=== PATIENT | female | born 1935 | race Two or more races ===

== ENCOUNTER 2022-05-13 22:43 | Inpatient (IN) | payer MEDICAID, MEDICARE ==
[~2022-05-13] VITALS: Ht 152.4 cm; Wt 63.6 kg
[2022-05-13] MEDS ORDERED: normal saline 1000ML IV soln IVB ONE (23:10)
[2022-05-13] MEDS ORDERED: ondansetron/PF 4mg/2ml inj IV ONE (23:10)
--- NOTE | 2022-05-13 23:26 | NUR ---
RELIEVING RN FOR LUNCH, PT IS RESTING QUIETLY ON GURNEY, FAMILY AT BEDSIDE TO INTREPRET SAMANTHA, HEMOCULT NEGATIVE, 1ST LITER NS INFUSING W/O, LABS DRAWN
[2022-05-13 23:35] LABS: BASOPHILS # (AUTO) 0.1 X10'3 (0-0.2); BASOPHILS % (AUTO) 0.8 % (0-1); EOSINOPHILS % (AUTO) 0.5 % (0-6); HEMATOCRIT 36.3 % (35.0-45.0); HEMOGLOBIN 12.9 g/dl (12.0-16.0); LYMPHOCYTES # (AUTO) 1.4 X10'3 (1.1-4.8); LYMPHOCYTES % (AUTO) 21.1 % (21-51); MEAN CORPUSCULAR HEMOGLOBIN 31.7 PG (27.0-31.0); MEAN CORPUSCULAR HGB CONC 35.5 g/dL (33.0-36.5); MEAN CORPUSCULAR VOLUME 89.4 FL (78-98); MEAN PLATELET VOLUME 7.1 FL (7.4-10.4); MONOCYTES # (AUTO) 0.5 X10'3 (0-0.9); MONOCYTES % (AUTO) 8.2 % (2-12); NEUTROPHILS # (AUTO) 4.6 X10'3 (1.8-7.7); NEUTROPHILS % (AUTO) 69.4 % (42-75); PLATELET COUNT 292 X10'3 (140-440); RED BLOOD COUNT 4.06 X10'6 (4.20-5.60); RED CELL DISTRIBUTION WIDTH 13.1 % (11.5-14.5); WHITE BLOOD COUNT 6.6 X10'3 (4.5-11.0)
[2022-05-13 23:46] LABS: ALANINE AMINOTRANSFERASE 47 U/L (12-78); ALBUMIN 3.5 G/DL (3.4-5.0); ALBUMIN/GLOBULIN RATIO 0.9 (1.1-1.5); ALKALINE PHOSPHATASE 81 IU/L (46-116); ANION GAP 7 (8-16); BILIRUBIN,TOTAL 0.8 MG/DL (0.1-1.0); BLOOD UREA NITROGEN 10 MG/DL (7-18); BUN/CREATININE RATIO 15.2 (6.6-38.0); CALCIUM 8.7 MG/DL (8.5-10.1); CHLORIDE 86 MMOL/L (99-107); CREATININE 0.66 MG/DL (0.40-0.90); GLUCOSE 130 MG/DL (70-104); LIPASE 103 U/L (73-393); TOTAL CARBON DIOXIDE 25.6 MMOL/L (24-32); TOTAL PROTEIN 7.3 G/DL (6.4-8.2); eGFR 85 ML/MIN
[2022-05-13 23:49] LABS: ASPARTATE AMINO TRANSFERASE 69 U/L (10-37); POTASSIUM 4.2 MMOL/L (3.5-5.1)
[2022-05-13 23:54] LABS: SODIUM 119 MMOL/L (135-145)
--- NOTE | 2022-05-14 00:10 | NUR ---
PT BECAME SOB WITH AMB TO RESTROOM AND BACK TO RM. PT DENIES ANY MEDICAL HX. DR GALLEGOS AT BEDSIDE AND WAS MADE AWARE OF PT C/O SOB, AUDIBLE WHEEZING. DR GALLEGOS NOTED PT TO HAVE CRACKLES IN BILAT LL, WHICH IS A NEW FINDING AFTER 1L NS BOLUS INFUSION.
[2022-05-14] MEDS ORDERED: iohexol 300mg/ml 100ml inj. ONE (00:34)
[2022-05-14] MEDS ORDERED: magnesium 4gm in 100ml NS 100 ML IV PRN (00:35)
[2022-05-14] MEDS ORDERED: acetaminophen 325mg tablet PO PRN ×2 (00:35)
[2022-05-14] MEDS ORDERED: potassium Cl 20 mEq SR tablet PO PRN ×2 (00:35)
[2022-05-14] MEDS ORDERED: magnesium Cl slow-release 64mg tablet PO PRN (00:35)
[2022-05-14] MEDS ORDERED: potassium Cl 40MEQ/1/2NS 520ml 520 ML IV PRN (00:35)
[2022-05-14] MEDS ORDERED: normal saline 1000ml 1,000 ML IV SCH (00:35)
[2022-05-14] MEDS ORDERED: ondansetron/PF 4mg/2ml inj IV PRN (00:35)
[2022-05-14] MEDS ORDERED: OMEP20CA15 PO (01:02)
[2022-05-14] MEDS ORDERED: DOXYCYCLINE (01:02)
[2022-05-14] MEDS ORDERED: METR-349 PO (01:02)
[2022-05-14] MEDS ORDERED: BISM262T46 PO (01:03)
[2022-05-14 01:48] LABS: CLARITY,URINE CLEAR (Clear); COLOR,URINE YELLOW (Yellow); GLUCOSE, URINE NEGATIVE (Neg); KETONES,URINE NEGATIVE (Neg); LEUKOCYTE ESTERASE ,URINE NEGATIVE (Neg); OCCULT BLOOD,URINE TRACE-INTACT (Neg); PROTEIN,URINE NEGATIVE (Neg); UROBILINOGEN,URINE 0.2 E.U/dL (0.2-1.0)
[2022-05-14 02:00] LABS: NITRITES, URINE NEGATIVE (Neg); UA COLLECTION TYPE CLN CATCH MIDSTREAM
[2022-05-14 02:09] LABS: BACTERIA,URINE FEW /HPF (Neg); RBC,URINE 0-2 /HPF (0-2); SQUAMOUS EPITHELIAL CELL,UR FEW /LPF (FEW); WBC,URINE 0-4 /HPF (0-4)
--- NOTE | 2022-05-14 02:20 | NUR ---
3RD TROPONIN MELINA AND SENT TO LAB
[2022-05-14] MEDS: normal saline 1000ml 1,000 ML IV SCH ×3 (03:13→22:01)
--- NOTE | 2022-05-14 03:17 | NUR ---
SPOKE WITH DR GALLEGOS REGARDING PT NOT RECEIVING ANTIBIOTIC THUS FAR DURING ER STAY, R/T ELEVATED/TRENDING LACTIC. DR GALLEGOS DOES NOT WANT TO ADD ANTIBIOTICS AT THIS TIME. PT WBC & PROCALCINTON LEVELS ARE NORMAL.
[2022-05-14] MEDS: K and/or MAG REPLACEMENT MC SCH ×2 (07:19→20:00)
[2022-05-14] MEDS: pantoprazole 40mg Tablet.DR PO SCH (08:45)
[2022-05-14] MEDS: heparin, porcine 5000 units/ml vial SQ SCH ×2 (08:45→20:00)
[2022-05-14] MEDS ORDERED: AMLO2.5T2 PO (12:19)
[2022-05-14] MEDS ORDERED: MELO-100 PO (12:19)
[2022-05-14] MEDS ORDERED: MAGN400T29 PO (12:19)
--- NOTE | 2022-05-14 12:34 | NUR ---
ASSISTING RN WITH PT CARE, PAGED DR HEWITT TO SEE IF SHE WANTS LACTIC REDRAWN, MED REC UPDATED, REPORT TO RAVI FLORES
[2022-05-14 12:41] LABS: ALANINE AMINOTRANSFERASE 45 U/L (12-78); ALBUMIN/GLOBULIN RATIO 0.9 (1.1-1.5); ALKALINE PHOSPHATASE 74 IU/L (46-116); ANION GAP 8 (8-16); ASPARTATE AMINO TRANSFERASE 62 U/L (10-37); BILIRUBIN,TOTAL 0.6 MG/DL (0.1-1.0); BLOOD UREA NITROGEN 9 MG/DL (7-18); BUN/CREATININE RATIO 12.7 (6.6-38.0); CALCIUM 8.3 MG/DL (8.5-10.1); CHLORIDE 100 MMOL/L (99-107); CREATININE 0.71 MG/DL (0.40-0.90); GLUCOSE 124 MG/DL (70-104); POTASSIUM 3.9 MMOL/L (3.5-5.1); SODIUM 132 MMOL/L (135-145); TOTAL CARBON DIOXIDE 24.4 MMOL/L (24-32); TOTAL PROTEIN 6.5 G/DL (6.4-8.2); eGFR 78 ML/MIN
--- NOTE | 2022-05-14 19:04 | NUR ---
Patient in room ED 3. I have received report from MARIA LUISA Malave Rn and had the opportunity to ask questions and will assume patient care upon arrival to room 347B. Addendum: 05/14/22 at 1906 by Hui Celeste RN Amended: Links added.
[2022-05-14 19:30] VITALS: BP 140/69
[2022-05-14] MEDS ORDERED: temazepam 15mg capsule PO PRN (21:00)
[2022-05-14 22:00] VITALS: BP 131/32
--- NOTE | 2022-05-15 05:27 | NUR ---
resting eyes closed no s&s of distress. son french translator in chair at bedside.
--- NOTE | 2022-05-15 06:04 | NUR ---
Problems reprioritized. Patient report given, questions answered & plan of care reviewed with MARK CORONADO. Addendum: 05/15/22 at 0604 by Hui Celeste RN Amended: Links added.
--- NOTE | 2022-05-15 06:13 | NUR ---
Patient in room [facility] 347. I have received report from MARK Ames and had the opportunity to ask questions and assume patient care.
[2022-05-15 06:33] VITALS: BP 128/70
[2022-05-15 06:45] LABS: BASOPHILS % (AUTO) 0.7 % (0-1); EOSINOPHILS # (AUTO) 0.1 X10'3 (0-0.9); EOSINOPHILS % (AUTO) 1.2 % (0-6); HEMATOCRIT 37.6 % (35.0-45.0); HEMOGLOBIN 12.7 g/dl (12.0-16.0); LYMPHOCYTES # (AUTO) 2.1 X10'3 (1.1-4.8); LYMPHOCYTES % (AUTO) 34.8 % (21-51); MEAN CORPUSCULAR HEMOGLOBIN 30.4 PG (27.0-31.0); MEAN CORPUSCULAR HGB CONC 33.7 g/dL (33.0-36.5); MEAN CORPUSCULAR VOLUME 90.4 FL (78-98); MEAN PLATELET VOLUME 7.1 FL (7.4-10.4); MONOCYTES # (AUTO) 0.7 X10'3 (0-0.9); MONOCYTES % (AUTO) 11.9 % (2-12); NEUTROPHILS # (AUTO) 3.1 X10'3 (1.8-7.7); NEUTROPHILS % (AUTO) 51.4 % (42-75); PLATELET COUNT 279 X10'3 (140-440); RED BLOOD COUNT 4.17 X10'6 (4.20-5.60); RED CELL DISTRIBUTION WIDTH 13.2 % (11.5-14.5)
[2022-05-15 07:11] LABS: ALANINE AMINOTRANSFERASE 46 U/L (12-78); ALBUMIN/GLOBULIN RATIO 0.9 (1.1-1.5); ALKALINE PHOSPHATASE 73 IU/L (46-116); ANION GAP 5 (8-16); ASPARTATE AMINO TRANSFERASE 57 U/L (10-37); BILIRUBIN,TOTAL 0.5 MG/DL (0.1-1.0); BLOOD UREA NITROGEN 10 MG/DL (7-18); BUN/CREATININE RATIO 11.9 (6.6-38.0); CALCIUM 8.4 MG/DL (8.5-10.1); CHLORIDE 105 MMOL/L (99-107); CREATININE 0.84 MG/DL (0.40-0.90); GLUCOSE 88 MG/DL (70-104); POTASSIUM 3.9 MMOL/L (3.5-5.1); SODIUM 136 MMOL/L (135-145); TOTAL CARBON DIOXIDE 25.6 MMOL/L (24-32); TOTAL PROTEIN 6.2 G/DL (6.4-8.2); eGFR 65 ML/MIN
[2022-05-15] MEDS: pantoprazole 40mg Tablet.DR PO SCH (07:54)
[2022-05-15] MEDS: heparin, porcine 5000 units/ml vial SQ SCH (07:55)
[2022-05-15] MEDS: K and/or MAG REPLACEMENT MC SCH (08:00)
--- NOTE | 2022-05-15 08:59 | NUR ---
Malnutrition consult: Pt unsure of wt loss per MST, no wt hx in EMR. Pt does not speak [place]. She presented w/ ~2 days of nausea and vomiting, had 50% intake of first Regular meal here. No edema noted. Does not appear w/ visual muscle/fat wasting. No edema note and pt w/ normal muscle strength. Pt does not meet minimum criteria for malnutrition at this time. Addendum: 05/15/22 at [address] Amended: Links added.
[2022-05-15] MEDS: normal saline 1000ml 1,000 ML IV SCH (09:10)
[2022-05-15] MEDS ORDERED: LEVO-65 PO (09:42)
[2022-05-15 11:06] VITALS: BP 127/64
--- NOTE | 2022-05-15 12:12 | NUR ---
Discussed with patient and patient's son discharge instructions, meds and follow up. Patient son translating and verbalizes understanding of teaching and stated no questions. Patient dc'd with all personal belongings and son to transport home. Patient escorted out in wheelchair accompanied by MARICHUY Montes De Oca.
== END 2022-05-15 12:25 | disposition home or self-care (01) | DRG 392 ==
LOC: ER 22:46 → ED HOLD 05-14 00:34 → SUR 3N 05-14 19:18
PROVIDERS: ADMIT Internal Medicine; ATTEND Internal Medicine
PROC: BW2110Z Computerized Tomography (CT Scan) of Abdomen and Pelvis using Low Osmolar Contrast, Unenhanced and Enhanced (ICD-10-PCS; principal; 2022-05-14)
DX: K31.9 Disease of stomach and duodenum, unspecified (principal); E87.1 Hypo-osmolality and hyponatremia; E87.20 Acidosis, unspecified; T39.395A Adverse effect of other nonsteroidal anti-inflammatory drugs [NSAID], initial encounter; I10 Essential (primary) hypertension; Z79.1 Long term (current) use of non-steroidal anti-inflammatories (NSAID); Z79.899 Other long term (current) drug therapy
CPT/HCPCS: 36415; 71045; 74177; 80053; 81001; 83605; 83690; 83880; 84145; 84300; 84484; 85025; 87040; 87081; 87502; 87503; 93005; 93306; 99285; A4615; G0378; J1644; J2405; J3490; J7030; Q9967